=== PATIENT | male | born 1995 | race Caucasian/White ===

== ENCOUNTER 2025-01-12 18:57 | Emergency (ER) | payer OTHER, SELFPAY ==
[2025-01-12 18:58] VITALS: BP 123/86; PULSE 86; RESP 14; TEMP 36.8; O2SAT 100; BMI 27.9
--- NOTE | 2025-01-12 20:40 | RAD_ITS ---
PROCEDURE: LUMBAR SPINE 2 OR 3 VIEWS 01/12/2025 REASON FOR EXAM: PAIN TECHNIQUE: 2 view(s) of the lumbar spine FINDINGS: Vertebrae: No acute fracture or subluxation. Discs: Disc space heights are preserved. Alignment: Straightening of the cervical alignment likely due to positioning. Other: RAD/Lumbar Spine 2 or 3 Views IMPRESSION: NO EVIDENCE OF LUMBAR FRACTURE. Reading Location: [facility]
[2025-01-12 20:57] VITALS: BP 140/86; PULSE 59; RESP 18; O2SAT 98
[2025-01-12 22:00] VITALS: BP 140/86
--- NOTE | 2025-01-12 22:38 | EX.ED.DYSGE1 ---
HPI History of Present Illness Chief Complaint: Back Narrative Narrative: Patient is a 29-year-old male with no known significant past medical history who presented to the emergency department chief complaint of back pain. Patient states that on he was lifting and noted that during squats he felt pain in his lower back. He states he been taking Tylenol and ibuprofen which he states that has been helping his pain. He states that since the pain has not been getting better he came here for further evaluation management. Patient states that he has right-sided back pain that radiates to his right buttock region. He states he has been urinating normally for himself and having normal bowel movements. PFSH PFS Medical History no medical history Home Medications ?Medication ?Instructions ?Recorded ?Last Taken ?Type cyclobenzaprine 5 mg tablet 5 mg PO TID PRN muscle spasm #20 01/12/25 Unknown Rx tabs lidocaine 5 % topical patch 1 patch topical DAILY #15 ea 01/12/25 Unknown Rx (Lidoderm) Allergy/AdvReac Type Severity Reaction Status Date / Time No Known Allergies Allergy Verified 01/12/25 19:01 Family History no significant family his Surgical History no surgical history Social History Smoking Status: Never smoker ROS ROS ED ROS Narrative Constitutional: Denies fevers, chills, headaches Abdomen: Denies nausea vomit diarrhea, states that he has been having normal bowel movements : Denies any urinary symptoms, notes that he has been urinating normally as noted above Neurological: Denies numbness, weakness, tingling Musculoskeletal: Complains of back pain as noted above Skin: Denies rashes or lesions EXAM Physical Exam Narrative Exam Narrative: General: Patient was lying in bed rest comfortably did not appear to be in acute distress Head: Atraumatic, normocephalic Eyes: PERRL bilateral, EOMI bilateral, no conjunctival injection noted Neck: Soft, supple, trachea midline Cardiovascular: Regular rate and rhythm Musculoskeletal: No tenderness palpation midline of the thoracic lumbar spine, patient has tenderness palpation over the right quadratus lumborum region Extremities: +5/5 strength noted in the bilateral upper and lower extremities, radial pulses +2/4 in the bilateral extremities, no pedal edema on exam Neurological: Patient following commands and that he was at [facility] year is 2024. No saddle anesthesia noted Skin: Warm, dry, intact no rashes or lesions noted Const Vital Signs: 01/12/25 18:58 01/12/25 20:57 01/12/25 22:00 Temperature 98.2 F Temperature Source Temporal Pulse Rate 86 59 L Respiratory Rate 14 18 Blood Pressure 123/86 H 140/86 H 140/86 H Blood Pressure Mean 98 104 104 Pulse Ox 100 98 Oxygen Delivery Method Room Air MDM MDM MDM Narrative Medical decision making narrative: Patient is a 29-year-old male who presented to the emergency department with chief complaint of back pain. On the differential diagnosis includes but not limited to musculoskeletal strain, compression fracture. Once workup is obtained reviewed he will be reevaluated. Patient will be given Toradol and Norflex. Patient's x-ray lumbar spine reviewed by myself by radiology showed no evidence of lumbar fracture. Reevaluation patient is feeling much better he would like to go home at this point time. Patient was advised to rotate Tylenol and ibuprofen [id number]. He is advised to not operate anything under the influence of the muscle relaxer. He is advised to follow-up with a family physician that he was referred to. He is encouraged to return with worsening symptoms or concerns. He is agreeable this plan as well as significant other bedside all question concerns answered he is discharged home in stable condition. Radiography Diagnostic Testing: Clinical Impression(s) from Imaging Studies Lumbar Spine X-Ray 01/12/25 20:40 IMPRESSION: NO EVIDENCE OF LUMBAR FRACTURE. [facility] Chief Complaint: Back ED Provider: Abhinav Shah Dx/Rx/DC Orders Clinical Impression: Musculoskeletal strain Prescriptions: New cyclobenzaprine 5 mg tablet 5 mg PO TID PRN (Reason: muscle spasm) Qty: 20 0RF lidocaine [Lidoderm] 5 % adhesive patch,medicated 1 patch topical DAILY Qty: 15 0RF Rx Instructions: leave on most painful area for up to 12 hrs Primary Care Provider: Care Physician,No Primary Referrals: Care Physician,No Primary [Primary Care Provider] - Domingo Oliva MD [Med Staff - Active Staff] - Activity Restrictions/Additional Instructions: Take Tylenol and ibuprofen [id number] when you do this you can take something every 3 hours max dose of Tylenol is 4000 mg max dose of ibuprofen 3200 mg. Use other prescriptions as prescribed do not operate anything under the influence of the muscle relaxer cyclobenzaprine as this can make you sleepy and drowsy. Your x-ray did not show any broken bones. Return with worsening symptoms or other concerns. Print Language: Palauan Disposition Disposition: Home, Self Care
[2025-01-12] MEDS: Orphenadrine 60 MG/2 ML Ampul 30 MG IM (23:02)
[2025-01-12] MEDS: Ketorolac 30 MG/ML Syringe IM (23:02)
[2025-01-12 23:34] VITALS: BP 140/86; PULSE 59; RESP 16; TEMP 36.6; O2SAT 99
== END 2025-01-12 23:34 | disposition home or self-care (01) ==
PROVIDERS: Emergency Provider Emergency Medicine; Visit Provider Emergency Medicine
DX: S39.012A Strain of muscle, fascia and tendon of lower back, initial encounter (principal); X58.XXXA Exposure to other specified factors, initial encounter
CPT/HCPCS: 72100; 96372; 99282